=== PATIENT | male | born 1955 | race Two or more races ===

== ENCOUNTER 2016-08-04 19:24 | Emergency (ER) | payer MEDICAID ==
[~2016-08-04] VITALS: Ht 170.2 cm; Wt 95.3 kg
[2016-08-04 23:50] VITALS: BP 114/75
[2016-08-05] MEDS ORDERED: LIDOCAINE 1% HCL (LOCAL ANESTH.) INJ 20ML MDV ONE (00:04)
[2016-08-05] MEDS ORDERED: LIDOCAINE 1% HCL (LOCAL ANESTH.) INJ 20ML MDV IJ ONE (00:15)
[2016-08-05] MEDS ORDERED: BACITRACIN TOP OINT 1 UD PKG TOP ONE (00:15)
[2016-08-05] MEDS ORDERED: TETANUS-DIPTH-ACEL PERTUSSIS 0.5ML SYRG IM ONE (00:15)
== END 2016-08-05 00:48 | disposition home or self-care (01) ==
LOC: ER 19:27
DX: S61.211A Laceration without foreign body of left index finger without damage to nail, initial encounter (principal); Z88.0 Allergy status to penicillin; Z88.1 Allergy status to other antibiotic agents; X58.XXXA Exposure to other specified factors, initial encounter; Y93.44 Activity, trampolining; Y99.8 Other external cause status; Y92.89 Other specified places as the place of occurrence of the external cause
CPT/HCPCS: 12001; 73140; 90471; 90715; 99284; J2001